=== PATIENT | male | born 1960 | race Native Hawaiian/Other Pacific Islander ===

== ENCOUNTER 2017-01-23 11:38 | Outpatient (CLI) | payer OTHER | END 2017-01-23 11:58 | disposition short-term general hospital (02) | LOC: AMB 11:38 | DX: M54.5 Low back pain (principal); S01.81XA Laceration without foreign body of other part of head, initial encounter; V63.5XXA Driver of heavy transport vehicle injured in collision with car, pick-up truck or van in traffic accident, initial encounter; Y92.488 Other paved roadways as the place of occurrence of the external cause | CPT/HCPCS: A0425; A0429 ==

== ENCOUNTER 2017-01-23 12:05 | Emergency (ER) | payer OTHER ==
[~2017-01-23] VITALS: Ht 185.4 cm; Wt 111.1 kg
[2017-01-23 12:05] VITALS: TEMP 98.4
[2017-01-23 12:30] LABS: PLATELET COUNT 204 K/uL (142-355)
[2017-01-23 12:41] LABS: SODIUM 136 mmol/L (136-145)
[2017-01-23 15:07] VITALS: BP 174/94
== END 2017-01-23 15:13 | disposition home or self-care (01) ==
LOC: ED 12:05
DX: S30.0XXA Contusion of lower back and pelvis, initial encounter (principal); S00.81XA Abrasion of other part of head, initial encounter; V63.5XXA Driver of heavy transport vehicle injured in collision with car, pick-up truck or van in traffic accident, initial encounter
CPT/HCPCS: 36415; 80053; 80307; 85027; 96374; 96375; 99283; G0479; J1885; J2060